=== PATIENT | female | born 2000 | race Caucasian/White ===

== ENCOUNTER 2024-08-08 14:18 | Emergency (ER) | payer BC ==
[2024-08-08] MEDS ORDERED: Sodium Chloride 0.9% 10 ML Syringe FLUSH PRN (14:42)
[2024-08-08] MEDS: Sodium Chloride 0.9% 1,000 ML IV STA (15:00)
[2024-08-08 15:08] LABS: BASOPHILS PERCENT AUTO 0.4 % (0.0-1.0); EOSINOPHILS PERCENT AUTO 0.1 % (0.0-6.0); HEMATOCRIT 44.1 % (37.0-47.0); HEMOGLOBIN 14.3 gm/dl (12.0-16.0); IMMATURE GRAN ABSOLUTE AUTO 0.03 K/mm3 (0.00-0.05); IMMATURE GRAN PERCENT AUTO 0.3 % (0.0-0.4); LYMPHOCYTES ABSOLUTE AUTO 1.7 K/mm3 (1.0-4.8); LYMPHOCYTES PERCENT AUTO 19.4 % (24.0-44.0); MEAN CORPUSCULAR HGB CONC 32.4 g/dl (32.0-36.0); MEAN CORPUSCULAR VOLUME 89.5 fl (83.0-99.0); MEAN PLATELET VOLUME 10.2 fl (9.4-12.3); MONOCYTES ABSOLUTE AUTO 0.4 K/mm3 (0.0-0.8); MONOCYTES PERCENT AUTO 4.5 % (0.0-8.0); NEUTROPHILS ABSOLUTE AUTO 6.8 K/mm3 (1.8-7.7); NEUTROPHILS PERCENT AUTO 75.3 % (41.0-71.0); PLATELET COUNT,PLT 201 K/mm3 (150-400); RED BLOOD CELL COUNT 4.93 M/mm3 (4.10-5.30); WHITE BLOOD CELL COUNT,WBC 8.98 K/mm3 (3.9-11.3)
[2024-08-08 15:34] LABS: INR 1.03; PROTHROMBIN TIME 10.9 SECONDS (9.7-12.0)
[2024-08-08 15:35] LABS: PTT,PARTIAL THROMBOPLSTIN TIME 24.2 SECONDS (21.7-31.4)
[2024-08-08 15:48] LABS: A/G RATIO 1.1 (1-2); ALBUMIN 3.9 g/dl (3.4-5.0); ANION GAP 16.1 (5-15); BILIRUBIN TOTAL 0.6 mg/dL (0.2-1.0); BUN/CREATININE RATIO 12.7 (14-18); CALCIUM 9.4 mg/dL (8.5-10.1); CREATININE 1.1 mg/dL (0.55-1.02); EST CRCL DRUG DOSING (CG) 70.35 mL/min; POTASSIUM,K 4.1 mEq/L (3.5-5.1); PROTEIN TOTAL,TP 7.5 g/dl (6.4-8.2)
[2024-08-08] MEDS: Morphine 2 MG/ML SYRINGE IVPUSH ONE (18:56)
[2024-08-08] MEDS: Ondansetron 4 MG/2 ML SDV IVPUSH ONE (18:56)
[2024-08-08] MEDS: Heparin Sodium/D5W 250 ML IV SCH (19:37)
[2024-08-08] MEDS: Heparin Sodium 5,000 Units/ML Vial IVPUSH ONE (19:39)
[2024-08-10 16:43] LABS: HOMOCYSTINE 8 umol/L (0-15)
[2024-08-10 18:43] LABS: PROT C FUNCTIONAL 129 % (83-168); PROT S FUNCTIONAL 101 % (57-131); PROTEIN C TOTAL AG 90 % (63-153)
[2024-08-10 19:43] LABS: AT III ANTIGEN 92 % (82-136); AT III ENZYMATIC 126 % (76-128)
[2024-08-11 04:42] LABS: B2GLYCPRT1 IGG AB <10 SGU (<=20); B2GLYCPRT1 IGM AB <10 SMU (<=20)
[2024-08-11 05:42] LABS: PETH 16:0/18:1 (POPETH) 75 ng/mL; PETH 16:0/18:2 (PLPETH) 95 ng/mL
[2024-08-13 10:09] LABS: CARDIOLIPIN AB IGA <10
== END 2024-08-08 20:25 ==
LOC: JD.ED 14:18
DX: G08 Intracranial and intraspinal phlebitis and thrombophlebitis (principal)
CPT/HCPCS: 36415; 70544; 80053; 80321; 81241; 83090; 85025; 85300; 85301; 85302; 85303; 85306; 85610; 85613; 85730; 86146; 87449; 96361; 96365; 96375; 99285; J1644; J2270; J2405; J7030; G0433; G0480